=== PATIENT | male | born 1945 | race Caucasian/White ===

== ENCOUNTER 2023-01-01 14:12 | Outpatient (CLI) | payer OTHER, SELFPAY | END 2023-01-01 14:13 | disposition home or self-care (01) | PROVIDERS: PCP Chiropractor; Visit Provider Chiropractor | DX: I25.10 Atherosclerotic heart disease of native coronary artery without angina pectoris (principal); I34.0 Nonrheumatic mitral (valve) insufficiency | CPT/HCPCS: 93306 ==